=== PATIENT | female | born 2000 | race Caucasian/White ===

== ENCOUNTER → 2020-04-15 11:00 | Outpatient (CLI) | payer BC | END | disposition home or self-care (01) | LOC: D.US 11:00 → D.NM 11:30 | PROVIDERS: ATTEND Internal Medicine Gastroenterology | DX: R10.84 Generalized abdominal pain (principal); R11.0 Nausea ==

== ENCOUNTER → 2020-05-27 14:16 | Outpatient (CLI) | payer BC | END | disposition home or self-care (01) | LOC: D.LAB 14:16 | PROVIDERS: ATTEND Internal Medicine Gastroenterology | DX: K52.9 Noninfective gastroenteritis and colitis, unspecified (principal) ==

== ENCOUNTER → 2020-06-26 09:03 | Outpatient (CLI) | payer BC ==
[2020-06-26 09:50] LABS: HCG SERUM NEGATIVE (NEGATIVE)
== END | disposition home or self-care (01) ==
LOC: D.NM 09:00
PROVIDERS: ATTEND Internal Medicine Gastroenterology
DX: R10.84 Generalized abdominal pain (principal); R11.0 Nausea

== ENCOUNTER 2020-07-26 05:23 | Day surgery (SDC) | payer BC ==
[2020-07-24 11:09] LABS: BASOPHILS 0.4 % (0-2); EOSINOPHILS 1.6 % (0-7); IMMATURE GRANULOCYTES 0.2 % (0-5); LYMPHOCYTES 29.6 % (15-50); MCH 31.6 pg (26.0-34.0); MCHC 34.1 g/dL (31.0-37.0); MCV 92.6 fL (80.0-100.0); MEAN PLATELET VOLUME 9.5 fL (7.4-10.4); MONOCYTES 7.6 % (2-11); NEUTROPHILS 60.6 % (40-80); PLATELET COUNT 270 10x3/uL (130-400); RBC 4.75 10x6/uL (4.00-5.40); RDW 11.6 % (11.5-14.5); WBC 4.9 10x3/uL (4.8-10.8)
[2020-07-24 11:16] LABS: ANION GAP 14.2 mmol/L (8-16); CALCIUM 9.5 mg/dL (8.5-10.1); CARBON DIOXIDE 24.9 mmol/L (21.0-32.0); CREATININE - SERUM 1.1 mg/dL (0.6-1.3); POTASSIUM - SERUM 4.1 mmol/L (3.5-5.1)
[~2020-07-26] VITALS: Ht 167.6 cm; Wt 54.4 kg
--- NOTE | ~2020-07-26 | OP ---
PATIENT NAME: ELIZABETH REIS MEDICAL RECORD: [id number] :99 LOCATION:D.OPS ADMISSION DATE: SURGEON: SHIMON AYON MD DATE OF OPERATION: 07/26/2020 PREOPERATIVE DIAGNOSES: 1. Biliary dyskinesia. 2. Multiple sclerosis. POSTOPERATIVE DIAGNOSES: 1. Biliary dyskinesia. 2. Multiple sclerosis. PROCEDURE: Single incision laparoscopic cholecystectomy. SURGEON: Shimon Ayon MD REPORT OF PROCEDURE: The patient's abdomen was prepped and draped in sterile fashion. An incision was made through the umbilicus. Electrocautery was used to dissect through the subcutaneous tissues and fascia and I bluntly entered the abdominal cavity. Once inside, an SILS port was inserted and the abdomen was insufflated. The patient's gallbladder was then grasped and elevated and there were no signs of any inflammatory changes. There are no signs of any acute inflammation. The cystic artery and cystic duct were dissected free and these were clipped proximally and distally and ligated in standard fashion. The gallbladder was then taken off the liver bed using electrocautery and placed into the right upper quadrant. Any bleeding from the liver bed was treated with electrocautery. The ports and insufflation were then removed and the gallbladder was taken out through the umbilicus. The umbilical fascia was closed with interrupted 0 Vicryls times 6. The wound was then infused with 10 mL of 0.25% Marcaine with epinephrine and closed with running subcutaneous 5-0 Monocryl. COMPLICATIONS: None. CONDITION: Stable. ANESTHESIA: General endotracheal and local. BLOOD LOSS: Minimal. TRANSINT:[id number] Voice Confirmation ID: [id number] DOCUMENT ID: [id number] SHIMON AYON MD CC: [id number] DICTATION DATE: 07/26/20905 CHEMIST STEROIDS: 07/26/20 1113 [facility] 07/26/20 [facility] [address] [id number]
[~2020-07-26 05:23] MED LIST: OCREVUS IV; RITALIN10 MG PO; VITAMIN B-12500 MCG PO; VITAMIN D400 UNI1 PO; WELLBUTRIN SR150 MG PO
[2020-07-26 06:15] LABS: HCG URINE NEGATIVE (NEGATIVE)
[2020-07-26 06:17] VITALS: BP 112/73; Ht 167.6 cm; Wt 54.4 kg
[2020-07-26] MEDS ORDERED: NORCO 7.5-3251 EACH PO (09:03)
--- NOTE | 2020-07-26 10:48 | NUR ---
ABD NONDISTENDED AND TENDER. REPORTS A DECREASE IN PAIN AFTER NORCO. IV D/C'D WITH CANNULA INTACT, PRESSURE HELD, AND DRSG PLACED. DISCHARGE INSTRUCTION GIVEN TO BOTH PT AND MOTHER, BOTH VERBALIZED AN UNDERSTANDING. DISCHARGED IN STABLE CONDITION AND WITHOUT C/O
== END 2020-07-26 10:40 | disposition home or self-care (01) ==
LOC: D.OPS 05:23 → D.PAN 08:00 → D.OPS 08:00 → EDSTATUS 08:00 → D.OPS 10:40
PROVIDERS: ATTEND Surgery
DX: K82.8 Other specified diseases of gallbladder (principal); G35 Multiple sclerosis